=== PATIENT | female | born 1950 | race Caucasian/White ===

== ENCOUNTER 2023-03-05 11:33 | Outpatient (CLI) | payer MEDICARE, SELFPAY | END 2023-03-05 11:34 | disposition home or self-care (01) | LOC: NFLDREF 03-09 15:55 | PROVIDERS: Visit Provider Registered Nurse | DX: R30.0 Dysuria (principal); N39.0 Urinary tract infection, site not specified | CPT/HCPCS: 87086; 87186 ==

== ENCOUNTER 2024-05-19 09:08 | Day surgery (SDC) | payer MEDICARE, SELFPAY ==
[2024-05-19] VITALS (24 sets, daily range): BP systolic 95–160; BP diastolic 47–91; PULSE 61–74; RESP 12–16; TEMP 35.8–36.8; O2SAT 90–99; BMI 34.4
--- OUTSIDE RECORDS SUMMARY | 2024-05-19 09:13 | XMS_ITS | Clinical Summary ---
Author Organization [employer] [facility] Address [place], [place] [address] Care Team Providers Care Varnish Inspector Name Role Phone Albania Davey MD Primary Care Provider [phone] Ila Zapata RN Unavailable Allergies Active Allergy Reactions Criticality Noted Date Comments Penicillins Rash Medium 12/05/2006 Medications miscellaneous medical supply miscIndications: Essential hypertension Blood pressure cuff/kit 1 Units 10/19/19 18 Active MULTIVITAMIN ORAL Take by mouth once daily. Active CALCIUM ORAL Take by mouth once daily. Active imcqu-9i-ghe-epa -fish oil 1,000-1,400 mg cpDR Take by mouth once daily. Active TURMERIC ORAL Take by mouth once daily. Active alendronate (FOSAMAX) 70 mg tabletIndication s:Age-related osteoporosis without current pathological fracture Take 1 Tablet (70 mg) by mouth once a week in the morning. Take on empty stomach with full glass of water. Do not lie down for 1 hr. 12 Tablet 3 11/19/19 24 Active cyanocobalamin (Vitamin B-12) 1,000 mcg tabletIndication s:Low vitamin B12 level Take 2 Tablets (2,000 mcg) by mouth once daily. 200 Tablet 3 11/19/19 24 Active metFORMIN (GLUCOPHAGE XR) 500 mg Extended-Release tabletIndication s:Type 2 diabetes mellitus with diabetic microalbuminuria , without long-term current use of insulin (HC) Take 1 Tablet (500 mg) by mouth two times daily with meals. 200 Tablet 3 03/06/20 24 Active antiox #8/om3/dha/epa/l ut/zeax (PRESERVISION AREDS 2, OMEGA-3, ORAL) Take by mouth. Active lisinopriL (PRINIVIL; ZESTRIL) 40 mg tabletIndication s:Hypertension, unspecified type Take 1 Tablet (40 mg) by mouth once daily. 100 Tablet 3 05/12/19 25 Active metoprolol succinate (TOPROL XL) 100 mg Sustained-Releas e tabletIndication s:Hypertension, unspecified type Take 1 Tablet (100 mg) by mouth once daily. 100 Tablet 3 05/12/19 25 Active lisinopriL (PRINIVIL; ZESTRIL) 40 mg tabletIndication s:Hypertension, unspecified type Take 1 Tablet (40 mg) by mouth once daily. 100 Tablet 3 04/25/19 24 025 Discontinued metoprolol succinate (TOPROL XL) 100 mg Sustained-Releas e tabletIndication s:Hypertension, unspecified type Take 1 Tablet (100 mg) by mouth once daily. 100 Tablet 3 04/25/19 24 025 Discontinued metoprolol succinate (TOPROL XL) 100 mg Sustained-Releas e tabletIndication s:Hypertension, unspecified type TAKE 1 TABLET BY MOUTH ONCE DAILY 100 Tablet 05/01/19 25 025 Discontinued(Re order (E-cancel not sent)) lisinopriL (PRINIVIL; ZESTRIL) 40 mg tabletIndication s:Hypertension, unspecified type TAKE 1 TABLET BY MOUTH ONCE DAILY 100 Tablet 05/01/19 25 025 Discontinued(Re order (E-cancel not sent)) Active Problems Problem Noted Date Diagnosed Date Type 2 diabetes mellitus wit h diabetic microalbuminuria, without long-term current use of insulin 05/12/2024 Adenomatous colon polyp 06/26/2018 Overview (06/26/2018): Colonoscopy 06/2018 polyps, repeat in 5 years Panic attack 07/26/2013 ACP (advance care planning) 07/25/2013 Overview (07/25/2013): Discussed. Contact dermatitis and other eczema, due to unspecified cause 07/08/2012 Osteopenia 03/31/2009 Overview (11/27/2014): dexa hip -2.1 12/21, stable 2009, in 2013 hip risk 3.2 %. Discussed and will not do medication. Consider recheck age 68 Colon polyp, hyperplastic 01/28/2008 Overview (02/06/2013): Colonoscopy 03/23, due in 3 years. 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 Recommend annual thyroid us for 5 years until stable (2010) Clinically no change. Bety Dodge M.D. 07/25/2013 10:10 AM Resolved Problems Problem Noted Date Diagnosed Date Resolved Date Pelvic mass 10/10/2017 06/12/2018 Cervical polyp 09/05/2010 06/12/2018 Knee pain, right 08/08/2010 12/20/2012 Encounters Date Type Department Care Team Description 05/14/2024 Orders Only [facility] [address] [place] [address] Susanna Gore, R.T. (ARRT) 1 scan: (1-Ord) NFLD-EKG-05/12/24 05/12/2024 10:25 AM DIRECTOR CENTER Office Visit [facility] [address] [place] [address] Albania Davey MD Preoperative Exam (Right knee replacement. [facility]. 05/19/2024) 05/12/2024 Travel 04/29/2024 Refill [facility] [address] [place] [address] Albania Davey MD Refill Request (Metoprolol Succinate, Lisinopril) 04/11/2024 Orders Only [facility] Scanner 1 scan: (1-Ord) [facility], DIABETIC EYE EXAM, 04/11/2024 03/25/2024 11:00 AM DIRECTOR CENTER Patient Outreach [facility] [address] [place] [address] lIa Zapata executive recruiter (Assessment/new diagnosis) 03/25/2024 Travel 03/06/2024 10:00 AM DIRECTOR CENTER Office Visit [facility] [address] [place] [address] Albania Davey MD Diabetes (3 Month Check) 03/06/2024 Travel 02/29/2024 11:30 AM DIRECTOR CENTER Orders Only [facility] [address] [address] Lab, [facility] 02/29/2024 Travel 02/22/2024 Telephone [facility] [address] [place] [address] Albania Davey MD Lab from Last 3 Months Immunizations Name Administration Dates Next Due AMB INFLUENZA IIV3 (AGE 65+ YRS) PF (Flu Clinic Only) 02/06/2018,02/14/2017 AMB Influenza, IIV3 (Age >=3 years)(Flu Clinic Only) 02/11/2013,03/16/2010 AMB Influenza, IIV4 PF (=>6 mos Flulaval,Fluzone Fluarix)(Flu Clinic Only) 02/06/2018 Amb Influenza, Inact (High-d ose) (Flu Clinic Only) 01/25/2016,02/04/2014 COVID-19 vaccine (OkCupid NTQUIQ 30mcg/0.3mL) PF, MDV 07/06/2020,06/15/2020 Influenza, High-dose Inactivated 024,01/09/2019,01/09/2019,02/15 Influenza, High-dose Quadriv alent Inactivated 03/18/2023,02/01/2022 Influenza, IIV3 (Age 6-35 mos) 03/25/2009 Influenza, IIV3 (Age >=3 years) 05/01/19 13,03/25/2009,01/28/2008,07/04 Influenza, Inactivated AIIV4 (Age 65+ Years) Preserv Free 01/19/2021 Influenza, Inactivated IIV3 (Age 65+ Years) Preserv Free 01/07/2020 Pneumococcal Poly,23-Valent (Pneumovax) 07/25/2013 Pneumococcal conj 13-Valent (Prevnar 13) 06/06/2016 RSV, Recombinant ADJ Reconst ituted (Arexvy 120MCG/0.5mL) 05/06/2023 Td (Age >=7 Years) 01/16/2003 Tdap 04/05/2020,08/08/2010 Zoster (Shingrix-RZV, recombinant) 04/05/2020, Zoster (Zostavax-ZVL, live) 09/05/2010 Family History Medical History Relation Name Comments Diabetes Brother 1 Hypertension Brother 1 Cerebral palsy Brother 2 Cancer Father lung, age 88 Diabetes Mother Heart Disease Mother Hypertension Mother Hypertension Sister Multiple sclerosis Sister Anesthesia Malignant Hyperthermia No Family History Blood Disease No Family History Cancer-breast No Family History Cancer-colon No Family History Relation Name Status Comments Brother 1 Alive Brother 2 Father (Age 62) lung cance r Mother Sister Alive Social History Tobacco Use Types Packs/Day Years Used Date Smoking Tobacco: Never Smokeless Tobacco: Never Tobacco Cessation:Counseling Given: Yes Alcohol Use Standard Drinks/Week Comments Not Currently 0 (1 standard drink = 0.6 oz pur e alcohol) PHQ-2 Answer Date Recorded PHQ-2 TOTAL SCORE 0 2023 Social Connections Answer Date Recorded Do you often feel lonely or isolated from those around you? 0 03/06/2024 Financial Resource Strain Answer Date R ecorded Difficulty of Paying Living Expenses 3 03/06/2024 Difficulty of Paying Living Expenses Not on file 03/06/2024 Food Insecurity Answer Date Recorded Do you worry your food will run out before you are able to buy more? 1 03/06/2024 Transportation Needs Answer Date Record ed Does lack of transportation keep you from medica l appointments? 1 03/06/2024 Does lack of transportation keep you from work, meetings or getting things that you need? 1 03/06/2024 Housing Stability Answer Date Recorded What is your housing situation today? 1 03/06/2024 Utilities Answer Date Recorded Do you have trouble paying f or utilities (for example, heat, electricity, water, phone)? 1 03/06/2024 Comments No Sex and Gender Information Value Date Recorded Sex Assigned at Not on file Legal Sex Female 6:31 AM DIRECTOR CENTER Gender Identity Not on file Sexual Orientation Not on file Obstetrics History Para Term AB IAB SAB Ectopic Multiple Livin g Live Births 4 3 1 1 3 Date Outcome GA Total Labor Labor/2nd/3rd Weight Sex Type Anes PTL Inessa A1 A5 Name Clin Para Para Para SAB Last Filed Vital Signs Vital Sign Reading Time Taken Comments Blood Pressure 132/82 05/12/2024 10:59 AM DIRECTOR CENTER Pulse 72 05/12/2024 10:32 AM DIRECTOR CENTER Temperature 36.7 C (98 F) 01/19/2021 8:58 AM CDT Respiratory Rate 16 03/26/2019 1:30 PM DIRECTOR CENTER Oxygen Saturation 96% 05/12/2024 10:32 AM DIRECTOR CENTER Inhaled Oxygen Concentration - - Weight 82.8 kg (182 lb 9.6 oz) 05/12/2024 10:32 AM DIRECTOR CENTER Height 156.3 cm (5' 1.52) 05/12/2024 10:[address] Body Mass Index 33.93 05/12/2024 10:32 AM DIRECTOR CENTER Plan of Treatment Health Maintenance Due Date Last Done Comments Depression screening for age 12+ 2024 2023, 04/11/2022, 03/24/2021, Additional history exists Medicare Wellness for age 65+ 2024, 04/11/2022, 03/22/2021, Additional history exists BMI (ht and wt on same day) for age 18+ 05/12/2025 05/12/2024, 2023, 04/11/2022, Additional history exists Tetanus booster 04/05/2030 04/05/2020, 04/08/2010, 01/16/2003 Pneumococcal series for age 50+ Completed 7, 07/25/2013 Hepatitis C screening for ag e 18-79 Completed 03/11/2019 Tdap Completed 04/05/2020, 08/08/2010 Zoster (shingles) series for age 50+ Completed 04/05/2020, 01/07/2020, 09/05/2010 RSV vaccine for adults or Completed 05/06/2023 DEXA/DXA scan for age 65+ Completed 2023, 06/29/2016, 07/29/2013, Additional history exists COVID-19 vaccine series Completed 03/03/20 24, 03/18/2023, 01/25/2022, Additional history exists Influenza for age 65+ Completed 03/03/2024 , 03/18/2023, 02/01/2022, Additional history exists Medical Devices Implanted Type Area Ict Business Analyst Device Identifier Shelf Expiration Date Model / Serial / Lot Adhesion Barrier 5x6in Seprafilm Absorb - [id number] Implanted:Qty: 2 on 10/09/2017 by Malu Carrizales MD at [facility] N/A: Abdomen [employer] 10/13/2018 4301-02# / / [id number] Adhesion Barrier 5x6in Seprafilm Absorb - [id number] Implanted:Qty: 1 on 10/09/2017 by Malu Carrizales MD at [facility] N/A: Abdomen [employer] 03/15/2018 4301-02# / / [id number] Procedures Procedure Name Priority Date/Time Associated Diagnosis Comments [place] READING EKG - NO CHARGE, COMP ONLY Routine 05/14/2024 4:26 PM DIRECTOR CENTER Pre-op exam EKG 12 LEAD Routine 05/14/2024 4:26 PM DIRECTOR CENTER Pre-op exam BASIC METABOLIC PANEL Routine 05/12/2024 11:34 AM DIRECTOR CENTER Hypertension, unspecified type LIPID PANEL W REFLEX MEASURED LDL Routine 05/12/2024 11:34 AM DIRECTOR CENTER Hyperlipidemia, unspecified hyperlipidemia type HEMOGLOBIN Routine 05/12/2024 11:34 AM DIRECTOR CENTER Pre-op exam SCAN-EYE EXAM 04/11/2024 12:00 AM DIRECTOR CENTER URINE ALBUMIN TO CREATININE RATIO, RANDOM Routine 02/29/2024 12:58 PM DIRECTOR CENTER Type 2 diabetes mellitus without complication, without long-term current use of insulin (HC) HEMOGLOBIN A1C MONITORING (POCT) Routine 02/29/2024 11:36 AM DIRECTOR CENTER Type 2 diabetes mellitus without complication, without long-term current use of insulin (HC) VITAMIN B12 Routine 02/29/2024 11:32 AM DIRECTOR CENTER Low vitamin B12 level XR DXA BONE DENSITY 2 SITES AXIAL Routine 10/30/2023 11:02 AM CDT Post-menopausal Osteopenia, unspecified location ANTI HCV Routine 03/11/2019 11:04 AM DIRECTOR CENTER Need for hepatitis C screening test from Last 3 Months or Most Recently Relevant to Health Maintenance Results * EKG 12 LEAD (05/14/2024 4:26 PM DIRECTOR CENTER) us Albania Davey MD EKG ORD Final Resul t * [place] READING EKG - NO CHARGE, COMP ONLY (05/14/2024 4:26 PM DIRECTOR CENTER) us Albania Davey MD PB - PROVIDER READINGS Radha l Result * (ABNORMAL) LIPID PANEL W REFLEX MEASURED LDL (05/12/2024 11:34 AM DIRECTOR CENTER) CHOLESTEROL, TOTAL 182 <200 mg/dL [facility] HDL CHOLESTEROL 45(L) > OR = 50 mg/dL [facility] TRIGLYCERIDES 370(H) <150 mg/dL [facility] Comment: If a non-fasting specimen was collected, consider repeat triglyceride testing on a fasting specimen if clinically indicated. Venus et al. J. of Clin. Lipidol. 2015;9:129-169. LDL-CHOLESTEROL 88 mg/dL (calc) [facility] Comment: Reference range: <100 Desirable range <100 mg/dL for primary prevention; <70 mg/dL for patients with CHD or diabetic patients with > or = 2 CHD risk factors. LDL-C is now calculated using the Phuong calculation, which is a validated novel method providing better accuracy than the Friedewald equation in the estimation of LDL-C. Kalpesh SHEPPARD et al. RUDY. 2013;310(19): 1936-4899 (http://education.IMASTE/faq/NJV442) CHOL/HDLC RATIO 4.0 <5.0 (calc) [facility] NON HDL CHOLESTEROL 137(H) <130 mg/dL (calc) [facility] Comment: For patients with diabetes plus 1 major ASCVD risk factor, treating to a non-HDL-C goal of <100 mg/dL (LDL-C of <70 mg/dL) is considered a therapeutic option. Blood BLOOD SPECIMEN / Unknown 05/12/2024 11:34 AM DIRECTOR CENTER 05/12/2024 11:34 AM DIRECTOR CENTER Albania Davey MD CHEMISTRY Final Resul t Performing Organization Address City/[facility]/ZIP Co de Phone Number [facility] [address] [address], [facility] [address] [place] [address] * HEMOGLOBIN (05/12/2024 11:34 AM DIRECTOR CENTER) HEMOGLOBIN 15.1 11.7 - 15.5 g/dL [facility] Blood BLOOD SPECIMEN / Unknown 05/12/2024 11:34 AM DIRECTOR CENTER 05/12/2024 11:34 AM DIRECTOR CENTER us Albania Davey MD HEMATOLOGY Final Resul t Performing Organization Address City/[facility]/ZIP Co de Phone Number [facility] [address] [address], [facility] [address] [place] [address] * (ABNORMAL) BASIC METABOLIC PANEL (05/12/2024 11:34 AM DIRECTOR CENTER) GLUCOSE 163(H) 65 - 99 mg/dL [facility] Comment: Fasting reference interval For someone without known diabetes, a glucose value >125 mg/dL indicates that they may have diabetes and this should be confirmed with a follow-up test. UREA NITROGEN (BUN) 12 7 - 25 mg/dL [facility] CREATININE 0.67 0.60 - 1.00 mg/dL [facility] EGFR 91 > OR = 60 mL/min/1. 73m2 [facility] BUN/CREATININE RATIO SEE NOTE: 6 - 22 (calc) [facility] Comment: Not Reported: BUN and Creatinine are within reference range. SODIUM 138 135 - 146 mmol/L [facility] POTASSIUM 4.4 3.5 - 5.3 mmol/L [facility] CHLORIDE 100 98 - 110 mmol/L [facility] CARBON DIOXIDE 29 20 - 32 mmol/L [facility] ELECTROLYTE BALANCE 9 7 - 17 mmol/L (calc) [facility] CALCIUM 9.1 8.6 - 10.4 mg/dL [facility] Blood BLOOD SPECIMEN / Unknown 05/12/2024 11:34 AM DIRECTOR CENTER 05/12/2024 11:34 AM DIRECTOR CENTER us Albania Davey MD CHEMISTRY Final Resul t [facility] [address] [place] [address], [facility] [address] [place] [address] * SCAN-EYE EXAM (04/11/2024 12:00 AM DIRECTOR CENTER) us Scanner OTHER Final Result * (ABNORMAL) URINE ALBUMIN TO CREATININE RATIO, RANDOM (02/29/2024 12:58 PM DIRECTOR CENTER) CREATININE, RANDOM URINE 135 20 - 275 mg/dL [facility] ALBUMIN, URINE 12.1 See Note: mg/dL [facility] Comment: Reference Range: Reference Range Not established ALBUMIN/CREATININE RATIO, RANDOM URINE 90(H) <30 mg/g creat [facility] Comment: The ADA defines abnormalities in albumin excretion as follows: Albuminuria Category Result (mg/g creatinine) Normal to Mildly increased <30 Moderately increased 30-299 Severely increased > OR = 300 The ADA recommends that at least two of three specimens collected within a 3-6 month period be abnormal before considering a patient to be within a diagnostic category. Urine URINE SPECIMEN / Unknown 02/29/2024 12:58 PM DIRECTOR CENTER 02/29/2024 12:59 PM DIRECTOR CENTER Narrative [facility] - 03/01/2024 4:20 AM DIRECTOR CENTER SPLIT 02/29/2024 FROM [id number] Albania Davey MD URINE Final Resul t Performing Organization Address [facility] Co de Phone Number [facility] [address] [place] [address], [email or web address] [address] * (ABNORMAL) HEMOGLOBIN A1C MONITORING POCT (02/29/2024 11:36 AM DIRECTOR CENTER) POC HEMOGLOBIN A1C 6.9(H) <6.0 % OF TOTAL HGB [facility] Comment: Any point of care results exhibiting inconsistency with the patient's clinical status should be repeated using a different testing method. Blood BLOOD SPECIMEN / Unknown 02/29/2024 11:36 AM DIRECTOR CENTER 02/29/2024 11:38 AM DIRECTOR CENTER Narrative [facility] - 02/29/2024 12:30 PM DIRECTOR CENTER 2 OF 2 Albania Davey MD CHEMISTRY Final Resul t Performing Organization Address City/[facility]/ZIP Co de Phone Number [facility] [address] [place] [address], [place] [phone] [facility] [address], [place] [address] * VITAMIN B12 (02/29/2024 11:32 AM DIRECTOR CENTER) VITAMIN B12 372 200 - 1,100 pg/mL [facility] Comment: Please Note: Although the reference range for vitamin B12 is 200-1100 pg/mL, it has been reported that between 5 and 10% of patients with values between 200 and 400 pg/mL may experience neuropsychiatric and hematologic abnormalities due to occult B12 deficiency; less than 1% of patients with values above 400 pg/mL will have symptoms. Blood BLOOD SPECIMEN / Unknown 02/29/2024 11:32 AM DIRECTOR CENTER 02/29/2024 11:32 AM DIRECTOR CENTER Narrative [facility] - 03/01/2024 4:39 AM DIRECTOR CENTER MULTIPLE TESTING PRIORITIES; ROUTINE TESTING TO FOLLOW. us Albania Davey MD CHEMISTRY Final Resul t [facility] [address] [place] [address], [facility] [address] * (ABNORMAL) XR DXA BONE DENSITY 2 SITES AXIAL (10/30/2023 11:02 AM CDT) Anatomical Region Laterality Modality Spine, HIPS, HIPL, HIPR Other Impressions 11/06/2023 8:16 AM CDT Osteoporosis. RECOMMENDATIONS: The National Osteoporosis Foundation recommends pharmacologic treatment for patients with T-scores of -2.5 or less, patients with prior history of fragility fractures, or patients with 10-year probability of greater than 3% at hips or greater than 20% of suffering major osteoporotic fractures. Recommend continued optimization of calcium and vitamin D intake through dietary means and/or supplementation and regular exercise. Consider pharmacologic therapy for osteoporosis. Follow-up bone density reading in 2 years if therapy initiated to assess therapeutic efficacy. Marisol Mariscal PA-C [facility] 11/06/2023 Narrative 11/06/2023 8:16 AM CDT For Patients: Results are automatically released to your [employer] ([employer]) account once available, in compliance with federal regulations. This means that you may see your results before your provider has had a chance to review them. Please allow 2-3 business days for your provider to comment on the results. XR DXA Bone Mineral Density (BMD) EXAM LOCATION: [address] [address] PATIENT NAME: Leslye Redman DATE OF : 1950 EXAM DATE: 10/30/2023 REQUESTING PROVIDER: Albania Davey MD GENDER AT : female HEIGHT: 5' 2.52 (2023) WEIGHT: 182 lb 6.4 oz (2023) MENOPAUSAL STATUS: Postmenopausal RACE/ETHNICITY: White RISK FACTORS: White Race CURRENT MEDICATION FOR BONE LOSS: NONE INDICATION: Follow-up of existing osteopenia and Post-Menopause COMPARISON DATE(S): 2016 DXA scans are compared to prior studies for a patient only when the two (or more) studies were performed on the same scanner. It is not possible to compare data generated on one scanner to data from another because there are not standards in DXA equipment. This applies even if the two scanners are made by the same automotive brake adjuster. PROCEDURE: Dual-energy x-ray absorptiometry performed with routine technique. Reporting is completed in the form of a T-score. The T-score represents the standard deviation from peak bone mass based on young healthy adult. A Z-score is used for diagnosis in premenopausal women, and for men under the age of 50. FINDINGS: RESULT LUMBAR SPINE L1 - L4 BMD: 1.181 g/cm2 T-Score: - 0.1 Z-Score: + 1.1 Change from prior in 2017: Increase 7.7%. RESULTS FEMUR Left femoral neck BMD: 0.795 g/cm2 T-Score: - 1.8 Z-Score: - 0.2 Change from prior in 2017: Decrease 4.9%. Right femoral neck BMD: 0.690 g/cm2 T-Score: - 2.5 Z-Score: - 0.9 Change from prior in 2017: Decrease 6.6%. Left hip BMD: 0.789 g/cm2 T-Score: - 1.7 Z-Score: - 0.4 Change from prior in 2017: Decrease 6.4%. Right hip BMD: 0.756 g/cm2 T-Score: - 2.0 Z-Score: - 0.7 Change from prior in 2017: Decrease 2.2%. WHO criteria: Normal: T-score at or above -1 SD Osteopenia: T-score between -1.1 and -2.4 SD Osteoporosis: T-score at or below -2.5 SD us Albania Davey MD DEXA Final Resul t * ANTI HCV (03/11/2019 11:04 AM DIRECTOR CENTER) HEPATITIS C ANTIBODY Non-React kathy Non-React kathy 03/11/2019 5:47 PM DIRECTOR CENTER [facility] Comment:Antibodies to HCV no t detected; does not exclude the possibility of exposure to HCV. Blood BLOOD SPECIMEN / Unknown Venipuncture / Unknown 03/11/2019 11:04 AM DIRECTOR CENTER 03/11/2019 11:04 AM DIRECTOR CENTER us Ghazal SCOTT SEND OUTS Final Resu lt [facility] [address] [place] [address], [place] from Last 3 Months or Most Recently Relevant to Health Maintenance Insurance MEDICARE PART B HB ONLY BLUE CROSS NATIVE BLUE HB ONLY MEDICARE PART A HB ONLY [facility] MR/MSHO Advance Directives * Full Code (Latest Code Status on File) Date Activated Date Inactivated Comments 10/09/2017 7:03 AM 10/13/2017 1:18 PM Care Teams Varnish Inspector Relationship Specialty Start Date End Date Albania Davey MD [address] [facility] [place] [address] PCP - General Family Practice 04/25/23 Ila Zapata RN [address] [place] [address] Shipping Clerk 03/25/24
[2024-05-19] MEDS: OXYCODONE (CR) 10 MG TAB.ER.12H PO (09:50)
[2024-05-19] MEDS: ACETAMINOPHEN 500 MG TABLET 1000 MG PO ×3 (09:50→23:45)
[2024-05-19] MEDS: LACTATED RINGERS 1000 ML 1,000 ML 100 ML IV (10:11)
[2024-05-19] MEDS: SODIUM CHLORIDE 0.9 % (FLUSH) 10 ML SYRINGE IVF (10:11)
--- NOTE | 2024-05-19 10:18 | W.PM.H&PU ---
History & Physical Update History & Physical Update H&P Reviewed and patient assessed: No changes noted
[2024-05-19] MEDS: MIDAZOLAM HCL 1 MG/ML inj IVP (10:47)
[2024-05-19] MEDS: fentaNYL 100 MCG/2 ML inj IVP (10:47)
--- NOTE | 2024-05-19 10:49 | SUR.PREOP ---
TIME?OUT:?1046 PT/RN/MDA?VERIFICATION?OF?SURGICAL?SITE,?PROCEDURE,?AND?CONSENT OBTAINED?PRIOR?TO?INVASIVE?PROCEDURE. all in agreement
[2024-05-19] MEDS: TRANEXAMIC ACID 100 MG/ML INJ 1000 MG IV (12:00)
[2024-05-19] MEDS: CEFAZOLIN 2 GM in 0.9 % SODIUM CHLORIDE Mini-bag 100 ML IVPB ×2 (12:00→17:36)
[2024-05-19] MEDS: LACTATED RINGERS 500 ML 500 ML 125 ML IV (12:30)
--- NOTE | 2024-05-19 12:59 | PM.ORPRC ---
Procedure Note Date of procedure: 05/19/24 Procedure: PREOPERATIVE DIAGNOSIS: 1. Right knee osteoarthritis, primary, severe POSTOPERATIVE DIAGNOSIS: 1. Right knee osteoarthritis, primary, severe PROCEDURE: 1. Right total knee arthroplasty - subvastus SURGEON: Ashok Dumont MD. CAN VACUUM TESTER: IBETH Abernathy - Of note, a skilled assistant merchandiser was critical for this case to aid in patient positioning, tissue retraction, limb manipulation/positioning, and closure. ANESTHESIA: Spinal anesthetic IMPLANTS: DePuy J&J all cemented TKA - Attune PS femur size 4 narrow Size 3 tibia 5 poly spacer 35 mm patella TOURNIQUET: 90 min at 300 torr EBL: 50 ml COMPLICATIONS: None evident INDICATIONS: The patient is a pleasant 74-year-old female who has experienced severe right knee pain and difficulty bearing weight. Workup included x-rays which revealed severe osteoarthrosis in the knee. Given the deformity, the dysfunction, and the pain, as well as the failure of nonoperative management, recommendation was made for surgery. FINDINGS: Full-thickness chondral loss diffusely throughout the medial and to a lesser degree patellar and lateral compartments. Small effusion upon entering the joint. Degenerative meniscus pathology medial greater than lateral. DESCRIPTION OF PROCEDURE: Following a thorough discussion of risks, benefits, and alternatives consent was obtained and the right knee was marked. The patient was brought to the operating room and placed supine on the operating table. Induction of anesthesia was undertaken. 2 g IV Ancef and 1 g tranexamic acid was administered within 1 hr of incision preoperatively. Proper time-out was performed identifying proper patient, site, procedure. The operative extremity was prepped and draped in the appropriate sterile fashion using ChloraPrep after the patient was positioned supine with all bony prominences well padded. A longitudinal, anterior, midline skin incision was made starting approximately 3cm proximal to the superior pole of the patella and advanced distal to the tibial tubercle. A subvastus approach was utilized. A medial subperiosteal sleeve was created with knife, hoffmann elevator and curved osteotome. The retropatellar fatpad was resected and the synovium in the suprapatellar pouch excised to visualize the anterior femoral cortex. Femoral preparation was performed via an intramedullary guide. Step drill allowed access into the femoral canal. The distal cutting guide was placed with 5? of valgus and 11 mm cut on the distal femur due to a 5?+ flexion contracture. Femur was sized using a anterior referencing guide in 3? of external rotation. This found have a best fit with the sizing noted above. The 4 in 1 cutting block was then placed, and the distal femur shaped accordingly. The box cut was then created and the trial implant inserted to confirm appropriate fit. We turned our attention to the proximal tibia. Extramedullary guide was utilized for cutting with the goal of being 90 degree cut from the mechanical axis of the tibia in the varus/valgus plane utilizing tibial crest as the primary alignment. Initially a 3 mm resection was performed from the medial tibial plateau. Ultimately, balancing was achieved in both flexion and extension in both varus and valgus. The knee was able to achieve full extension as well comfortably. The patella was initially measured and found have a thickness of 20 mm. It was resected back to approximately 14 mm. It was sized to be a best fit with as noted above. This was drilled, trial placed. All trials were placed and found to have an excellent stability and balance. At this stage, trial implants were removed, the knee was thoroughly irrigated with normal saline, and the cement was mixed. After irrigation, the knee was thoroughly dried, and cement placed, with the real tibial and femoral implants placed along with the patella. Trial poly spacer was placed and confirmed to have excellent range of motion and full extension, and the real poly spacer opened and inserted. All extra cement was removed, and a 3 min Betadine soak performed. Finally, a final irrigation round with normal saline was performed. Closure performed with 0 Vicryl and #0 Stratafix for the quad tendon/retinaculum. 2-0 Vicryl for the subcutaneous and 4-0 Stratafix for subcuticular closure. Dressings were applied and the patient was awoken from anesthesia after the tourniquet deflated and transferred the PACU in stable condition. A skilled assistant merchandiser was critical for this case to aid in patient positioning, tissue retraction, bone exposure, limb manipulation/positioning, patient safety, and closure. PLAN: 1. Weight bear as tolerated operative extremity. 2. 23 hr perioperative antibiotics. 3. Ice. 4. PT/OT consults for ambulation assistance/mobility education. 5. Social work consult for discharge planning. 6. DVT prophylaxis with at SCDs and aspirin twice daily.
--- NOTE | 2024-05-19 13:01 | CRLHL7_ITS ---
For Patients: As a result of the Cures Act, medical imaging exams and procedure reports are released immediately into your electronic medical record. You may view this report before your referring provider. If you have questions, please contact your health care provider. Indication: POST OP Technique: Two views right knee Findings/Impression: Hardware from a right total knee arthroplasty is in satisfactory position. Bone alignment is normal. No sign of acute fracture. Postop changes are within normal limits. Dictated by Laurent Azul MD @ 05/19/2024 2:11:08 PM (Electronically Signed)
--- NOTE | 2024-05-19 13:18 | P.ANES_ITS ---
Anesthesia Charges Start Date/Time Anesthesia Start Date: 05/19/24 Anesthesia Start Time: 11:39 Stop Date/Time Anesthesia Stop Date: 05/19/24 Anesthesia Stop Time: 13:36 Summary Extremes of Age - Over 70 or under 1: MDA Coding CPT Codes CPT Codes: ANESTH KNEE ARTHROPLASTY - 88092 ([id number]) P2 - PATIENT W/MILD SYST DISEASE, QK - QUICK PRINT OPERATOR 2-4 CNCRNT ANES PROC, QX - FOOD TASTER SVC W/ MD MED DIRECTION Additional Codes: Summary - Extremes of Age - Over 70 or under 1: MDA ([id number])
--- NOTE | 2024-05-19 13:18 | W.PM.NB ---
Nerve Block Nerve Block Time Seen by Provider: 10:51 Date Seen: 05/19/24 Type of block requested by surgeon for post-operative analgesia: adductor canal Side: right Time out performed: Yes Verification of patient name: Yes Verification of date of : Yes Site marking: site marked Name of person performing procedure: Connor Continuous monitoring Was continuous monitoring of O2 sat, B/P, monitoring coordinator, recorded every 15 minutes?: Yes Procedure Checklist: sterile prep, needles and gloves Ultrasound guided. Images saved: Yes Medications given in 5ml increments after negative aspiration: Marcaine %: 0.25 mL: 15 Needle gauge: 20 Precedex (mcg): 25 Patient tolerated procedure well: Yes Block Charges Block Charge (with Pro Fee): Femoral Nerve Use of Ultrasound Machine for Block: Yes- US Guidance/pain block
--- NOTE | 2024-05-19 13:18 | W.PM.NB ---
Nerve Block Nerve Block Time Seen by Provider: 10:51 Date Seen: 05/19/24 Type of block requested by surgeon for post-operative analgesia: geniculars Side: right Time out performed: Yes Verification of patient name: Yes Verification of date of : Yes Site marking: site marked Name of person performing procedure: Connor Continuous monitoring Was continuous monitoring of O2 sat, B/P, refinery operator helper crude unit, recorded every 15 minutes?: Yes Procedure Checklist: sterile prep, needles and gloves Ultrasound guided. Images saved: Yes Medications given in 5ml increments after negative aspiration: Marcaine %: 0.25 mL: 9 Needle gauge: 25 Patient tolerated procedure well: Yes Block Charges Block Charge (with Pro Fee): Genicular Nerve Block
--- NOTE | 2024-05-19 13:18 | W.ANESCHARGE ---
Anesthesia Charges Start Date/Time Anesthesia Start Date: 05/19/24 Anesthesia Start Time: 11:39 Stop Date/Time Anesthesia Stop Date: 05/19/24 Anesthesia Stop Time: 13:36 Summary Extremes of Age - Over 70 or under 1: MDA Coding CPT Codes CPT Codes: ANESTH KNEE ARTHROPLASTY - 45360 ([id number]) P2 - PATIENT W/MILD SYST DISEASE, QK - COMMUNITY CENTER COORDINATOR 2-4 CNCRNT ANES PROC, QX - CONTROLLED AREA CHECKER SVC W/ MD MED DIRECTION Additional Codes: Summary - Extremes of Age - Over 70 or under 1: MDA ([id number])
--- NOTE | 2024-05-19 13:36 | P.ANES_ITS ---
Anesthesia Charges Start Date/Time Anesthesia Start Date: 05/19/24 Anesthesia Start Time: 11:39 Stop Date/Time Anesthesia Stop Date: 05/19/24 Anesthesia Stop Time: 13:36 Summary Extremes of Age - Over 70 or under 1: COOK JELLY Coding CPT Codes CPT Codes: ANESTH KNEE ARTHROPLASTY - 95091 ([id number]) P2 - PATIENT W/MILD SYST DISEASE, QK - BUILDING CLEANER 2-4 CNCRNT ANES PROC, QX - COOK JELLY SVC W/ MD MED DIRECTION Additional Codes: Summary - Extremes of Age - Over 70 or under 1: COOK JELLY ([id number])
--- NOTE | 2024-05-19 13:36 | W.ANESCHARGE ---
Anesthesia Charges Start Date/Time Anesthesia Start Date: 05/19/24 Anesthesia Start Time: 11:39 Stop Date/Time Anesthesia Stop Date: 05/19/24 Anesthesia Stop Time: 13:36 Summary Extremes of Age - Over 70 or under 1: SENIOR NETWORK SECURITY ENGINEER Coding CPT Codes CPT Codes: ANESTH KNEE ARTHROPLASTY - 74675 ([id number]) P2 - PATIENT W/MILD SYST DISEASE, QK - NATURAL RESOURCES INSTRUCTOR 2-4 CNCRNT ANES PROC, QX - SENIOR NETWORK SECURITY ENGINEER SVC W/ MD MED DIRECTION Additional Codes: Summary - Extremes of Age - Over 70 or under 1: SENIOR NETWORK SECURITY ENGINEER ([id number])
--- NOTE | 2024-05-19 14:13 | SUR.PHASEI ---
patient met discharge criteria per anesthesia
--- NOTE | 2024-05-19 14:40 | P.IMCN_ITS ---
Date of Consult Patient: Karuna Patient Consult date: 05/19/24 Requesting Physician: Orthopedics Primary Care Provider: [place]ia Davey MD Consult Narrative Reason for consult: HTN, h/p goiter, DM2 Narrative: Leslye Redman is a 74 year old female with a history of hypertension, toxic uninodular goiter, IUP knee a, panic attack, colon polyps, type 2 diabetes cathy itus who underwent an elective right total knee arthroplasty today for severe osteoarthritis. Her was in the room with her and her son arrived while I was examining her. She is feeling well with no pain, CP or SOB. Review of Systems Status of ROS: Reports: 6 or more systems reviewed and unremarkable except as noted in History and below 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 ?E05.10 - Thyrotoxicosis with toxic single thyroid nodule without thyrotoxic crisis or storm (ICD-10) Osteopenia ?M85.80 - Other specified disorders of bone density and structure, unspecified site (ICD-10) Type 2 diabetes mellitus ?E11.9 - Type 2 diabetes mellitus without complications (ICD-10) Hypertension ?I10 - Essential (primary) hypertension (ICD-10) Mass of stomach ?K31.89 - Other diseases of stomach and duodenum (ICD-10) Shoulder injury ?S49.90XA - Unspecified injury of shoulder and upper arm, unspecified arm, initial encounter (ICD-10) Fall ?W19.XXXA - Unspecified fall, initial encounter (ICD-10) COVID ?U07.1 - COVID-19 (ICD-10) Surgical History Status post total right knee replacement (05/19/24) ?Z96.651 - Presence of right artificial knee joint (ICD-10) Hx of colonoscopy ?Z98.890 - Other specified postprocedural states (ICD-10) History of biopsy of kidney ?Z98.890 - Other specified postprocedural states (ICD-10) Hx of tubal ligation ?Z98.51 - Tubal ligation status (ICD-10) History of total abdominal hysterectomy and bilateral salpingo-oophorectomy ?Z90.710 - Acquired absence of both cervix and uterus (ICD-10) ?Z90.722 - Acquired absence of ovaries, bilateral (ICD-10) ?Z90.79 - Acquired absence of other genital organ(s) (ICD-10) S/P ORIF (open reduction internal fixation) fracture (03/26/07) ?Z98.890 - Other specified postprocedural states (ICD-10) ?Z87.81 - Personal history of (healed) traumatic fracture (ICD-10) S/P ORIF (open reduction internal fixation) fracture (07/19/07) ?Z98.890 - Other specified postprocedural states (ICD-10) ?Z87.81 - Personal history of (healed) traumatic fracture (ICD-10) History of removal of retained hardware (08/06/08) ?Z98.890 - Other specified postprocedural states (ICD-10) S/P ORIF (open reduction internal fixation) fracture (01/03/21) ?Z98.890 - Other specified postprocedural states (ICD-10) ?Z87.81 - Personal history of (healed) traumatic fracture (ICD-10) Social History (Updated 05/19/24 @ 15:55 by Ivy Matt MD) Narrative: . Lives independently. Denies tobacco, alcohol or recreational drug use. What is your current living situation?: I presently have a place to live Problems where you live: no known problems In the past 12 months, utilities in danger of being shut off: no In past 12 months, lack of transportation kept you from medical appts, meetings, work, or getting things needed for daily living: no In the past 12 mos, have been you worried that your food would run out before you had money to buy more?: never true In the past 12 mos, the food you bought just didn't last and you didn't have money to buy more?: never true Highest level of school completed/degree received: some college, no degree Smoking Status: Never smoker How often do you have a drink containing alcohol: never How often do you have six or more drinks on one occasion: Never AUDIT-C Alcohol total score: 0 Non-prescribed substance use: denies use Caffeine: No How often does anyone, including family, friends and others, physically hurt you : never How often does anyone, including family, friends and others, insult or talk down to you: never How often does anyone, including family, friends and others, threaten you with harm: never How often does anyone, including family, friends and others, scream or curse at you: never Meds Home Medications and Allergies Home Medications ?Medication ?Instructions ?Recorded ?Confirmed ?Type metoprolol succinate 100 mg 100 mg PO DAILY 05/28/22 05/19/24 History tablet,extended release 24 hr multivitamin 1 tab PO DAILY 05/15/24 05/19/24 History alendronate 70 mg tablet (Fosamax) 70 mg PO QWEEK 05/19/24 05/19/24 History lisinopril 40 mg tablet 40 mg PO DAILY 05/19/24 05/19/24 History metformin 500 mg tablet,extended 500 mg PO BIDWM 05/19/24 05/19/24 History release 24 hr Allergies Allergy/AdvReac Type Severity Reaction Status Date / Time Penicillins Allergy Verified 04/22/24 11:10 Exam Narrative: Exam Narrative: General: No acute distress. Awake alert oriented x3. HEENT: Normocephalic atraumatic, pupils equally round. Oropharynx clear. Mucous membranes are moist. Cardiovascular: Regular rate and rhythm. No murmurs, gallops, or rubs. Chest: No increased work of breathing. Clear to auscultation bilaterally. No crackles or wheezes. Abdomen: Bowel sounds present. Soft, nondistended, nontender. No hepatosplenomegaly or masses. Extremities: right knee bandage is clean, dry, and intact. No edema, no cyanosis or clubbing. Skin: No jaundice, no pallor, no rashes on visible skin. Const: Vital Signs, click to edit/add: Vital Signs - 24 hr 05/19/24 10:14 05/19/24 10:47 05/19/24 10:51 Temperature 97.7 F Pulse Rate 68 65 64 Respiratory Rate 16 14 14 Blood Pressure 145/82 H 155/82 H 145/69 H Pulse Oximetry 95 92 97 Oxygen Delivery Me thod Room Air Nasal Cannula Nasal Cannula Oxygen Flow Rate 2 2 05/19/24 13:33 05/19/24 13:35 05/19/24 13:40 Temperature 97.5 F L 97.5 F L 97.5 F L Pulse Rate 71 70 67 Respiratory Rate 13 12 12 Blood Pressure 96/47 L 95/55 L 112/64 Pulse Oximetry 96 96 97 Oxygen Delivery Me thod Nasal Cannula Nasal Cannula Nasal Cannula Oxygen Flow Rate 2 2 2 05/19/24 13:45 05/19/24 13:50 05/19/24 13:55 Temperature 97.5 F L 97.5 F L 97.5 F L Pulse Rate 64 69 67 Respiratory Rate 13 12 12 Blood Pressure 128/66 122/78 127/64 Pulse Oximetry 96 94 97 Oxygen Delivery Me thod Nasal Cannula Room Air Room Air Oxygen Flow Rate 2 05/19/24 14:00 Temperature 97 F L Pulse Rate 65 Respiratory Rate 12 Blood Pressure 133/72 Pulse Oximetry 97 Oxygen Delivery Me thod Room Air Oxygen Flow Rate Assessment and Plan Assessment and plan (1) Status post total right knee replacement: Problem comment: - 05/19/24 Right total knee arthroplasty, Dr. Dumont - routine post op cares - VTE prophylaxis with BID low dose aspirin Status: Acute (2) Osteoarthritis of right knee: Problem comment: severe Status: Chronic (3) Osteoarthritis of left knee: Problem comment: severe Status: Chronic (4) Type 2 diabetes mellitus: Problem comment: 02/29/2024 hemoglobin A1c 6.9% - Continue metformin Status: Chronic (5) Hypertension: Problem comment: - BP elevated. Continue home metoprolol. Hold lisinopril tonight. Monitor BP Status: Chronic
[2024-05-19] MEDS: OXYCODONE 5 MG TABLET PO ×3 (16:44→23:45)
[2024-05-19] MEDS: METFORMIN ER 500 MG PO (17:35)
--- NOTE | 2024-05-19 18:48 | PC.NURSE ---
AFEBRILE. LS CLEAR. BOWEL SOUNDS ACTIVE AND PASSING GAS. TOLERATING REGULAR DIET WITH NO C/O N/V. UP WITH A1-2, WALKER AND GAIT BELT TO RECLINER. PATIENT DID HAVE INCONTINENT URINE IN BED WITHOUT KNOWING RELATED TO EFFECTIVE NERVE BLOCK. PAIN CONTROLLED WITH OXYCODONE PRN AND SCHEDULED TYLENOL. DRESSING TO RIGHT KNEE CDI AND ACTIVE ICE TO KNEE.
[2024-05-19] MEDS: ASPIRIN 81 MG TABLET EC PO (20:27)
[2024-05-19] MEDS: lisinopriL 20 MG TABLET 40 MG PO (20:27)
[2024-05-19] MEDS: METOPROLOL SUCCINATE (XL) 100 MG TAB PO (20:28)
[2024-05-19] MEDS: SENNOSIDES 1 TAB TABLET 2 TAB PO (20:28)
[2024-05-20] MEDS: CEFAZOLIN 2 GM in 0.9 % SODIUM CHLORIDE Mini-bag 100 ML IVPB ×2 (02:05→09:57)
[2024-05-20 02:15] VITALS: BP 124/66; PULSE 68; RESP 16; O2SAT 93
--- NOTE | 2024-05-20 05:27 | PC.NURSE ---
End of shift note [id number]: Pt is alert and oriented x3. Pt reports 0-8/10 pain in right knee, pain managed with scheduled and PRN medications. Pt?s right knee dressing is CDI. Pt is passing gas, voiding and tolerating a regular diet. ?
[2024-05-20] MEDS: ACETAMINOPHEN 500 MG TABLET 1000 MG PO (06:01)
[2024-05-20 06:56] LABS: Basophils Percent Auto 0.1 % (0.0-3.0); Hematocrit* 38.7 % (33.0-51.0); Hemoglobin* 12.9 gm/dL (12.0-16.0); Immature Granulocytes Pct Auto 0.4 %; Lymphocytes Percent Auto 9.7 % (20-44); Mean Corpuscular HGB Conc 33 gm/dL (32-36); Mean Corpuscular Hemoglobin 31 pg (26-34); Mean Corpuscular Volume 92 fL (80-100); Monocytes Percent Auto 9.2 % (0.0-11.0); Neutrophils Percent Auto 80.6 % (42.0-72.0); Platelet Count* 203 K/uL (140-440); RDW Coefficient of Variation % 11.8 % (11.5-15.5); Red Blood Count* 4.21 m/uL (4.00-5.20); White Blood Count* 11.19 K/uL (4.50-11.00)
[2024-05-20 06:58] LABS: Slide Review Reflex No
[2024-05-20 07:13] LABS: Potassium* 4.6 mmol/L (3.6-5.1); Sodium* 138 mmol/L (135-149)
[2024-05-20 07:16] LABS: Creatinine* 0.6 mg/dL (0.5-1.5); Est. Creatinine Clearance* 36.12; Estimated Glomerular Filt Rate 93 ml/min
[2024-05-20 07:17] LABS: Blood Urea Nitrogen* 16 mg/dL (7-30)
[2024-05-20 07:30] VITALS: BP 109/63; PULSE 68; RESP 16; TEMP 36.6; O2SAT 99
[2024-05-20] MEDS: OXYCODONE 5 MG TABLET PO ×2 (08:04→10:39)
[2024-05-20] MEDS: METFORMIN ER 500 MG PO (08:04)
[2024-05-20] MEDS: ASPIRIN 81 MG TABLET EC PO (08:04)
[2024-05-20] MEDS: SENNOSIDES 1 TAB TABLET 2 TAB PO (08:05)
--- NOTE | 2024-05-20 08:07 | PM.ORPN ---
Subjective Subjective Date Seen: 05/20/24 Principal diagnosis: Status postop day 1 right total knee arthroplasty Interval history: Patient reports doing well. No acute events over night. Pain managed with scheduled and PRN medications, ice. DVT prophylaxis: 81 mg aspirin by mouth twice daily, SCDs, walking. Denies fevers, chills, aches, N/V, CP, SOB/ZIMMERMAN, or lightheadedness. Passing flatus. Ortho Exam Narrative Exam Narrative: General: Well-developed, well-nourished, A&Ox 3, no apparent acute distress. Sitting in chair, having breakfast. Nurse present with morning medications -Patient appears comfortable; no apparent acute distress -Alert and oriented times 3 -Operative knee moderately swollen; soft tissues supple; no ecchymosis; no erythematous streaking Warmth appropriate -Surgical dressing clean, dry, intact; no drainage -Bilateral calfs soft; no significant swelling, edema, tenderness, erythema, discoloration, warmth, or palpable cords -2+ DP/PT pulses, intact dermatomes and myotomes distally (5/5 strength) Const Vital Signs, click to edit/add: Vital Signs - 24 hr 05/19/24 10:14 05/19/24 10:47 05/19/24 10:51 Temperature 97.7 F Pulse Rate 68 65 64 Pulse Rate [Left Pulse Oximeter] Respiratory Rate 16 14 14 Blood Pressure 145/82 H 155/82 H 145/69 H Blood Pressure [Left Arm] Pulse Oximetry 95 92 97 Oxygen Delivery Method Room Air Nasal Cannula Nasal Cannula Oxygen Flow Rate 2 2 05/19/24 13:33 05/19/24 13:35 05/19/24 13:40 Temperature 97.5 F L 97.5 F L 97.5 F L Pulse Rate 71 70 67 Pulse Rate [Left Pulse Oximeter] Respiratory Rate 13 12 12 Blood Pressure 96/47 L 95/55 L 112/64 Blood Pressure [Left Arm] Pulse Oximetry 96 96 97 Oxygen Delivery Method Nasal Cannula Nasal Cannula Nasal Cannula Oxygen Flow Rate 2 2 2 05/19/24 13:45 05/19/24 13:50 05/19/24 13:55 Temperature 97.5 F L 97.5 F L 97.5 F L Pulse Rate 64 69 67 Pulse Rate [Left Pulse Oximeter] Respiratory Rate 13 12 12 Blood Pressure 128/66 122/78 127/64 Blood Pressure [Left Arm] Pulse Oximetry 96 94 97 Oxygen Delivery Method Nasal Cannula Room Air Room Air Oxygen Flow Rate 2 05/19/24 14:00 05/19/24 14:10 05/19/24 14:15 Temperature 97 F L 96.5 F L 96.5 F L Pulse Rate 65 67 63 Pulse Rate [Left Pulse Oximeter] Respiratory Rate 12 12 16 Blood Pressure 133/72 140/80 H 131/73 Blood Pressure [Left Arm] Pulse Oximetry 97 90 94 Oxygen Delivery Method Room Air Room Air Nasal Cannula Oxygen Flow Rate 2 05/19/24 14:30 05/19/24 14:45 05/19/24 15:00 Temperature 96.8 F L Pulse Rate 61 62 Pulse Rate [Left Pulse Oximeter] Respiratory Rate 16 16 Blood Pressure 134/58 L 138/70 Blood Pressure [Left Arm] Pulse Oximetry 96 96 97 Oxygen Delivery Method Nasal Cannula Nasal Cannula Oxygen Flow Rate 2 2 05/19/24 15:00 05/19/24 15:00 05/19/24 15:15 Temperature 96.8 F L 96.9 F L Pulse Rate 65 64 Pulse Rate [Left Pulse Oximeter] Respiratory Rate 16 16 16 Blood Pressure 136/91 H 154/73 H Blood Pressure [Left Arm] Pulse Oximetry 97 96 97 Oxygen Delivery Method Room Air Nasal Cannula Nasal Cannula Oxygen Flow Rate 2 2 2 05/19/24 15:30 05/19/24 16:00 05/19/24 16:30 Temperature 96.8 F L 97 F L 97 F L Pulse Rate 67 65 67 Pulse Rate [Left Pulse Oximeter] Respiratory Rate 16 16 16 Blood Pressure 148/88 H 152/60 H 150/68 H Blood Pressure [Left Arm] Pulse Oximetry 97 96 99 Oxygen Delivery Method Nasal Cannula Room Air Room Air Oxygen Flow Rate 05/19/24 17:30 05/19/24 18:45 05/19/24 19:09 Temperature 97.3 F L 97.3 F L 97.1 F L Pulse Rate 65 68 Pulse Rate [Left Pulse Oximeter] 74 Respiratory Rate 16 16 16 Blood Pressure 154/77 H 160/79 H Blood Pressure [Left Arm] 147/81 H Pulse Oximetry 98 95 96 Oxygen Delivery Method Room Air Room Air Room Air Oxygen Flow Rate 2 05/19/24 20:21 05/19/24 23:41 02/03/25 23:41 Temperature 97.1 F L 98.2 F Pulse Rate Pulse Rate [Left Pulse Oximeter] 71 Respiratory Rate 16 Blood Pressure Blood Pressure [Left Arm] 131/71 Pulse Oximetry 92 92 Oxygen Delivery Method Room Air Oxygen Flow Rate 05/19/24 23:41 05/20/24 02:15 05/20/24 07:30 Temperature Pulse Rate Pulse Rate [Left Pulse Oximeter] 68 Respiratory Rate 16 16 Blood Pressure Blood Pressure [Left Arm] 124/66 Pulse Oximetry 92 93 99 Oxygen Delivery Method Room Air Room Air Oxygen Flow Rate 05/20/24 07:30 05/20/24 07:30 05/20/24 07:30 Temperature 98 F Pulse Rate Pulse Rate [Left Pulse Oximeter] 68 68 Respiratory Rate 16 16 16 Blood Pressure Blood Pressure [Left Arm] 109/63 Pulse Oximetry 99 99 Oxygen Delivery Method Room Air Room Air Oxygen Flow Rate Assessment and Plan Assessment and plan (1) Status post total right knee replacement: Problem details: - 05/19/24 Right total knee arthroplasty, Dr. Dumont - routine post op cares - VTE prophylaxis with BID low dose aspirin Status: Acute (2) Osteoarthritis of right knee: Problem details: severe Status: Chronic (3) Osteoarthritis of left knee: Problem details: severe Status: Chronic (4) Type 2 diabetes mellitus: Problem details: 02/29/2024 hemoglobin A1c 6.9% - Continue metformin Status: Chronic (5) Hypertension: Problem details: - BP elevated. Continue home metoprolol. Hold lisinopril tonight. Monitor BP Status: Chronic Plan - Complete 23 hour perioperative antibiotics. - PT/OT consult for education and assistance. - Social work consult for discharge planning - Prescribed analgesics as needed - DVT prophylaxis: As per, walking, and SCDs - Anticipation is for discharge to home with family/friends today 05/20/2024 if the patient remains medically stable, pain is controlled, and they are safe with mobilization.
== END 2024-05-20 11:55 | disposition home or self-care (01) ==
LOC: OR 09:10 → MEDSURG 09:11
PROVIDERS: PCP Family Medicine; Visit Provider Orthopaedic Surgery Sports Medicine
PROC: (CPT 27447; principal; 2024-05-19 11:15)
DX: M17.0 Bilateral primary osteoarthritis of knee (principal); G89.18 Other acute postprocedural pain; E11.9 Type 2 diabetes mellitus without complications; Z79.84 Long term (current) use of oral hypoglycemic drugs; I10 Essential (primary) hypertension; E05.10 Thyrotoxicosis with toxic single thyroid nodule without thyrotoxic crisis or storm; M85.80 Other specified disorders of bone density and structure, unspecified site
CPT/HCPCS: 27447; 01402; 36415; 64447; 64454; 73560; 76942; 82565; 84132; 84295; 84520; 85025; 94761; 97110; 97116; 97161; 97165; 97530; 97535; 99100; A9270; C1776; J0665; J0690; J1100; J2250; J2405; J2704; J3010; J7120

== ENCOUNTER 2024-10-09 09:15 | Outpatient (RCR) | payer MEDICARE, SELFPAY ==
--- NOTE | 2024-05-13 14:57 | PT.OPEX ---
PT [place] Outpatient Eval PT [facility] Outpatient Eval Start: 05/13/24 09:47 Freq: Status: Active Protocol: Document 05/13/24 11:03 MRS (Rec: 05/13/24 12:02 MRS No Response) E-signed By Berta Sandoval DPT Physical Therapy Outpatient Evaluation Insurance Information Recert Due Date 08/11/24 Insurance Name [facility] Medical Diagnosis R knee pain with primary OA; R TKA on 05/19/24 Treating Diagnosis Pain in R knee M25.561 Muscle Weakness M62.81 Impaired Mobility Z74.9 Referring MD Ashok Dumont MD Subjective Preferred Name Leslye Subjective Leslye is planning on R TKA for pain, weakness, and difficulty walking. Leslye reports knee giving out to cause a fall 2-3 times in the past year but has had difficulty walking for several years. PMH significant for DM , osteoporosis, OA, L foot and ankle surgeries. Leslye wants to be able to walk normal with confidence and be pain free. Pain Comments current 2/10; worst 5/10 Date of Last Physician Visit 04/24/24 Date of Next Physician Visit 05/27/24 Date of Surgery (If applicable) 05/19/24 Current Work Status Retired Precautions Treatment Precautions/Contraindications none Weight Bearing Status Weight Bear as Tolerated Objective Range of Motion L knee:4-127 R knee:8-129 Strength R KE 4+/5; all other LE 5/5 Palpation L medial arch of foot numb due to previous surgery Balance & Gait Antalgic gait pattern with slow pace due to fear of knee giving out. No AD used Functional Test Performed & Score LEFS= 43/80 Assessment Assessment/Impression Leslye is pleasant 74-year-old seen today for R TKA pre- operative evaluation with surgery date of 05/19/24. She is currently scheduled for SDS and plans to discharge to her home with her . At evaluation, Leslye demonstrates a lack of extension in B knees with ROM at L knee:4-127 ; R knee:8-129. Slight R knee extension weakness noted at 4+ /5; L 5/5. At this time, pt demonstrates impaired AROM, strength, endurance, and functional mobility. Pt would benefit from skilled PT treatment. Pt has OPPT eval scheduled on 05/21/24. Continue PT POC after R TKA on 05/19/24. Primary Functional Limitations pain, weakness, limited ROM, impaired functional mobility. Plan of Care Rehabilitation Potential Good Physical Therapy Goals STG's to be met in 2-4 weeks: 1.) Pt will abide by and be able to verbalize all post- surgical restrictions to allow for adequate healing.? 2.) Pt will report pain at 3/ 10 or less at worst. 3.) Pt will progress from using FWW to SPC with modified independence. LTG's to be met in 8-12 weeks. 1.) Pt will demonstrate full and pain free knee ROM? 2.) Pt will transition from walker to cane to independent gait with normal mechanics.? 3.) Pt will demonstrate R knee strength at 5/5. Treatment Plan/Direct Interventions Gait Training,Ice/Cold/ Vasopneumatic,Manual Therapy, Neuromuscular Re-ed, Therapeutic Activities, Therapeutic Exercises Frequency/Duration 2-3 times per week for 8-12 weeks Patient Will Be Discharged From Therapy Completion of LTG(s),Skills Plateau,Independent w/HEP, Independently Progressing Evaluation Billing Untimed Code Treatment Minutes 25 PT Eval No Charge No Complexity Low Certification Information Initial Certification Date 05/13/24 Ending Certification Date 08/11/24 Provider Signature Required Yes Provider Signature Shows Agreement With POC & Medical Necessity Physician NPI Number Write NPI# Here Physician Comment/Change : Physician Signature & Date Requested Please Sign/Date Here
--- NOTE | 2024-05-21 14:56 | PT.OPDNX ---
[facility] Daily Note PT [facility] Daily Note Start: 05/13/24 09:47 Freq: Status: Active Protocol: Document 05/21/24 07:28 HLA (Rec: 05/21/24 14:54 HLA [id number]) E-signed By Stephanie Galo, PT, DPT PT OP Daily Progress Note Visit Information Note Type Daily Note,Re-Evaluation Visit Number 2 Insurance Information Recert Due Date 08/11/24 Insurance Name [facility] Medical Diagnosis R knee pain with primary OA; R TKA on 05/19/24 Treating Diagnosis Pain in R knee M25.561 Muscle Weakness M62.81 Impaired Mobility Z74.9 Referring MD Ashok Dumont MD Subjective Preferred Name Leslye Subjective Leslye is s/p R TKA on 05/19/[address] Dumont. States she returned home 05/20/24. Pain has been moderate, limits sleep and mobility. Taking Tylenol and oxycodone. Sleeps 2 hours at a time. Has done her exercises 'the best I can.' Has ice machine, hasn't used it yet. Packs for now but will use the machine soon. Pain Comments moderate or 5/10 Date of Last Physician Visit 04/24/24 Date of Next Physician Visit 05/27/24 Date of Surgery (If applicable) 05/19/24 Precautions Treatment Precautions/Contraindications none Weight Bearing Status Weight Bear as Tolerated Home Exercise Home Exercise Comments Access Code: [email or web address] URL: [email or web address] Date: 05/21/2024 Prepared by: Stephanie Galo Exercises - Supine Single Leg Ankle Pumps - 3 x daily - 7 x weekly - 10 reps - edema management exercise type - Supine Quadricep Sets - 3 x daily - 7 x weekly - 10 reps - 5 seconds hold - strength exercise type - Supine Short Arc Quad - 3 x daily - 7 x weekly - 10 reps - 5 seconds hold - strength exercise type - Active Straight Leg Raise with Quad Set - 3 x daily - 7 x weekly - 10 reps - 2-3 second hold - strength exercise type - Supine Heel Slide - 3 x daily - 7 x weekly - 10 reps - range of motion exercise type - Supine Isometric Hamstring Set - 3 x daily - 7 x weekly - 10 reps - 5 sec hold - strength exercise type - Seated Knee Flexion Stretch - 3 x daily - 7 x weekly - 10 reps - 5 second hold - range of motion/stretch exercise type - Seated Long Arc Quad - 3 x daily - 7 x weekly - 10 reps - 5 second hold - range of motion/strength exercise type - Seated Passive Knee Extension - 3 x daily - 7 x weekly - 1 reps - 5-15 minutes hold - strength exercise type Patient Education - Safe Practices For Preventing Falls - Going Up and Down Stairs With Two Rails After Surgery - Walker WBAT - Ice Objective Other/Pertinent Objective Circumference: mid patella 45 cm 5 cm distal to patella 40 cm 5 cm proximal to patella 47 cm AAROM 0-10-91 with overpressure Functional Test Performed & Score LEFS= 43/80 Patient Instructed in Risks/Benefits Yes Therapeutic Exercise Therapeutic Exercise Minutes (minutes) 39 Therapeutic Exercise: To Restore Worked with pt on her ex, ROM, Functional Status positioning, use of ice. Ex as follows, AA SLR Access Code: [email or web address] URL: [email or web address] Date: 05/21/2024 Prepared by: Stephanie Galo Exercises - Supine Single Leg Ankle Pumps - 3 x daily - 7 x weekly - 10 reps - edema management exercise type - Supine Quadricep Sets - 3 x daily - 7 x weekly - 10 reps - 5 seconds hold - strength exercise type - Supine Short Arc Quad - 3 x daily - 7 x weekly - 10 reps - 5 seconds hold - strength exercise type - Active Straight Leg Raise with Quad Set - 3 x daily - 7 x weekly - 10 reps - 2-3 second hold - strength exercise type - Supine Heel Slide - 3 x daily - 7 x weekly - 10 reps - range of motion exercise type - Supine Isometric Hamstring Set - 3 x daily - 7 x weekly - 10 reps - 5 sec hold - strength exercise type - Seated Knee Flexion Stretch - 3 x daily - 7 x weekly - 10 reps - 5 second hold - range of motion/stretch exercise type - Seated Long Arc Quad - 3 x daily - 7 x weekly - 10 reps - 5 second hold - range of motion/strength exercise type - Seated Passive Knee Extension - 3 x daily - 7 x weekly - 1 reps - 5-15 minutes hold - strength exercise type Patient Education - Safe Practices For Preventing Falls - Going Up and Down Stairs With Two Rails After Surgery - Walker WBAT - Ice Therapeutic Activity Therapeutic Activities Comments sit<>stand, sit<>supine car transfers Manual Therapy Techniques Manual Therapy Minutes (minutes) 8 Manual Therapy Techniques STM to reduce edema, increase ROM, reduce pain R knee. Gait & Stair Training Gait & Stair Training Comments Gt slow, 200 feet x 2, vc heel toe gt, tends to be stiff in ext at swing. Activity level instructed. 2 stairs 2 rails cga, vc sequencing Treatment Minutes Untimed Code Treatment Minutes 10 Timed Code Treatment Minutes 47 Total Treatment Time 57 Billing Units Manual Therapy Units 1 Therapeutic Exercise Units 2 Re-Evaluation Units 1 Assessment/Impression Assessment/Impression Leslye is pleasant 74-year-old s/p R TKA at [facility] on 05/19/24. She returned home with spouse's support, today arrives using her walker. Pt reports pain was severe yesterday, feels her block wore off, but she did her ex and walked the best she could. Today is a bit better. Pt presents with edema R LE, R knee ROM 10-91 by end of session, gt labored with walker, improved pattern with cues. Transfers min/sba. Spouse present for training. Therapist reviewed positioning , use of ice, activity level, bed mobility, transfers, gt with walker, stairs and car transfers today. Patient is able to . Gentle massage to surgical limb to reduce pain, edema. Added tubigrip R LE for edema control. Patient presents with edema, pain surgical leg, impaired ROM, impaired strength, impaired transfers and impaired ambulation. PT is indicated 2x/week PT for strengthening, ROM, transfer training, gt training, manual techniques, balance exercise, stairs instruction. Patient's goals are to be ind amb community distances without her knee buckling, return to ROM without pain, ind ADLs without pain. Primary Functional Limitations pain, weakness, limited ROM, impaired functional mobility. Plan of Care Physical Therapy Goals STG's to be met in 2-4 weeks: 1.) Pt will abide by and be able to verbalize all post- surgical restrictions to allow for adequate healing.? 2.) Pt will report pain at 3/ 10 or less at worst. 3.) Pt will progress from using FWW to SPC with modified independence. LTG's to be met in 8-12 weeks. 1.) Pt will demonstrate full and pain free knee ROM? 2.) Pt will transition from walker to cane to independent gait with normal mechanics.? 3.) Pt will demonstrate R knee strength at 5/5. Equipment Information Equipment Information has walker and cane
--- NOTE | 2024-08-19 07:31 | PT.OPDNX ---
PT [facility] Daily Note PT [facility] Out[facility] Daily Note Start: 05/13/24 09:47 Freq: Status: Active Protocol: Document 08/14/24 07:25 HLA (Rec: 08/14/24 09:34 HLA [id number]) E-signed By Stephanie Galo, PT, DPT PT OP Daily Progress Note Visit Information Note Type Daily Note,Recert/Progress Note Visit Number [id number] Insurance Information Recert Due Date 11/07/24 Insurance Name [facility] Medical Diagnosis R knee pain with primary OA; R TKA on 05/19/24 Treating Diagnosis Pain in R knee M25.561 Muscle Weakness M62.81 Impaired Mobility Z74.9 Referring MD Ashok Dumont MD Subjective Preferred Name Leslye Subjective Feels stiffness R knee, spouse reminds her she is walking with her knee locked and needs heel toe gt. Pain Comments -05/26 Date of Last Physician Visit 07/01/24 Date of Surgery (If applicable) 05/19/24 Precautions Treatment Precautions/Contraindications none Weight Bearing Status Weight Bear as Tolerated Home Exercise Home Exercise Comments Access Code: [email or web address] URL: [email or web address] Date: 07/09/2024 Prepared by: Stephanie Galo Exercises - Quad Setting and Stretching - 2-3 x daily - 7 x weekly - 1 sets - 20 hold - Active Straight Leg Raise with Quad Set - 2-3 x daily - 7 x weekly - 10 reps - 2-3 second hold - strength exercise type - Supine Heel Slide with Strap - 2-3 x daily - 7 x weekly - 1 sets - 10 reps - 3-5 hold - Seated Knee Flexion Stretch - 2-3 x daily - 7 x weekly - 10 reps - 5 second hold - range of motion/stretch exercise type - Seated Long Arc Quad - 2-3 x daily - 7 x weekly - 10 reps - 5 second hold - range of motion/strength exercise type - Sit to Stand with Arms Crossed - 1 x daily - 7 x weekly - 1 sets - 10 reps - 3 hold - Seated Hamstring Stretch with Chair - 1 x daily - 7 x weekly - 3 sets - 1 reps - 5- 10 min hold - Standing Terminal Knee Extension with Resistance - 1 x daily - 7 x weekly - 2 sets - 10 reps - 5 hold - Mini Squat with Counter Support - 1 x daily - 7 x weekly - 2 sets - 10 reps - Standing Hip Circles - 1 x daily - 7 x weekly - 2 sets - 10 reps - Right Standing Lateral Shift Correction at Wall - Repetitions - 1 x daily - 7 x weekly - 2 sets - 10 reps - 5 hold Objective Other/Pertinent Objective AROM pre ex: 10-108 degrees flex seated. AAROM: post exercises R knee= 0-4-120- with overpressure strength R hip flex 4/5, abd 4 +/5, ext 4+/5, Functional Test Performed & Score LEFS= 43/80 5 time sit to stand 14.64 up from 17 sec TUG 13.24 sec up from 19.71 functional reach 8.25 inches up from 7 inches Patient Instructed in Risks/Benefits Yes Therapeutic Exercise Therapeutic Exercise Minutes (minutes) 15 Therapeutic Exercise: To Restore bike seat 2-3 to increase R Functional Status knee flex x 6 min seated HF, oscillations, dangling LAQ in sitting standing knee bends at counter supine HS with strap for flex all R knee Manual Therapy Techniques Manual Therapy Minutes (minutes) 30 Manual Therapy Techniques seated, supine and prone R tibial distraction with IR of tibia and glide to increase ext 3 reps each 30 sec all positions Seated/standing ER of tibia push to extend knee 3 reps each 30 sec holds' Patellar mobs Gait & Stair Training Gait & Stair Training Comments worked on gt fabian, improving speed to help relax hips, knee at swing, arms relaxed at swing. Neuromuscular Re-Ed Neuromuscular Reeducation Comments 07/18/24 tested 5 time sit to stand 14.64 up from 17 sec TUG 13.24 sec up from 19.71 functional reach 8.25 inches up from 7 inches Treatment Minutes Timed Code Treatment Minutes 45 Total Treatment Time 45 Billing Units Neuromuscular Reeducation Units 1 Therapeutic Exercise Units 2 Assessment/Impression Assessment/Impression Leslye is s/p R TKA DOS 05/19/24, strength ongoing struggles with ROM, stiffness and balance deficits affecting her gait. She arrives stiff, 10- 108 flex seated R knee. Worked on mobs/manual techniques to increase ROM at end range, able to get to 4-120 with overpressure by end of session . Pt instructed in working hard on flex/ext, end range motions, pushing motion outside of PT. Pt to work on walking faster to encourage arm swing. She remains weak, impaired ROM and impaired gt/ balance. Ongoing PT is recommended for strengthening, flexibility, and independence with mobility as well as endurance and balance to reduce fall risk. Primary Functional Limitations pain, weakness, limited ROM, impaired functional mobility. Plan of Care Physical Therapy Goals STG's to be met in 2-4 weeks: 1.) Pt will abide by and be able to verbalize all post- surgical restrictions to allow for adequate healing.?-met 2.) Pt will report pain at 3/ 10 or less at worst. - met 3.) Pt will progress from using FWW to SPC with modified independence. - met LTG's to be met in 8-12 weeks. 1.) Pt will demonstrate full and pain free knee ROM? 2.) Pt will transition from walker to cane to independent gait with normal mechanics.? 3.) Pt will demonstrate R knee strength at 5/5. Daily Plan of Care Continue per POC Equipment Information Equipment Information has walker and cane Recertification Information Initial Certification Date 05/21/24 Recertification Start Date 08/14/24 Recertification Due Date 08/13/24 Reasons to Continue Skilled Therapy end range extension lacking R knee, stiffness, weakness, substitution patterns with ambulation, impaired balance, impaired core strength Rehabilitation Potential good Continued Plan of Care and Interventions strengthening, ROM, balance, gt training, core strength, self stretch instruction Provider Signature Shows Agreement With POC & Medical Necessity Physician Comment/Change Comment or Changes Physician NPI Number #
== END 2024-10-10 08:31 | disposition home or self-care (01) ==
PROVIDERS: PCP Family Medicine; Visit Provider Orthopaedic Surgery Sports Medicine
DX: M25.561 Pain in right knee (principal); M17.11 Unilateral primary osteoarthritis, right knee; Z96.651 Presence of right artificial knee joint; Z51.89 Encounter for other specified aftercare
CPT/HCPCS: 97110; 97112; 97116; 97140; 97161; 97164; 97530; J0690; J1100; J2405; J2704